=== PATIENT | female | born 1985 | race Hispanic/Latino ===

== ENCOUNTER 2018-03-20 04:38 | Emergency (ER) | payer MEDICAID, OTHER ==
[2018-03-20] MEDS ORDERED: SODIUM CHLORIDE 0.9% 1000ML 1,000 ML IV ONE (05:09)
== END 2018-03-20 06:18 | disposition home or self-care (01) ==
LOC: EDH 04:38
DX: R00.2 Palpitations (principal); E86.9 Volume depletion, unspecified; F41.9 Anxiety disorder, unspecified; Z98.890 Other specified postprocedural states; Z72.0 Tobacco use; Z88.0 Allergy status to penicillin; Z88.1 Allergy status to other antibiotic agents
CPT/HCPCS: 93005; 96360; 99283; J7030

== ENCOUNTER 2021-11-02 06:07 | Emergency (ER) | payer MEDICAID ==
[~2021-11-02] VITALS: Ht 160 cm; Wt 99.8 kg
[2021-11-02 08:18] LABS: BASOPHILS % (AUTO) 0.2 % (0.0-5.0); EOSINOPHILS % (AUTO) 0.1 % (0.0-8.0); HEMATOCRIT 36.4 % (36-48); LYMPHOCYTES % (AUTO) 4.2 % (21.0-51.0); MEAN CORPUSCULAR HGB CONC 32.7 g/dL (32.0-36.0); MEAN CORPUSCULAR VOLUME 79.6 fL (79-99); MONOCYTES % (AUTO) 6.7 % (3.0-13.0); NEUTROPHILS % (AUTO) 88.3 % (40.0-77.0); PLATELET COUNT (AUTO) 388 K/uL (130-400); RED BLOOD CELL COUNT(AUTO) 4.57 MIL/uL (4.00-5.50); RED CELL DISTRIBUTION WIDTH 15.9 % (11.0-15.5); WHITE BLOOD COUNT (AUTO) 15.5 K/uL (4.8-10.8)
[2021-11-02] MEDS ORDERED: CLINDAMYCIN IVPB 600MG/50ML 50 ML IV SCH (08:30)
[2021-11-02] MEDS ORDERED: 0.9%NACL 1000ML 1,000 ML IV ONE (08:30)
[2021-11-02] MEDS ORDERED: ONDANSETRON 4MG INJ IVP ONE (08:30)
[2021-11-02] MEDS ORDERED: MORPHINE 4 MG SYG IVP ONE (08:30)
[2021-11-02 08:48] LABS: CREATININE 0.7 mg/dL (0.5-1.5); POTASSIUM 3.7 mmol/L (3.5-5.1)
[2021-11-02 08:58] LABS: ALBUMIN 3.5 g/dL (3.5-5.0); TOTAL PROTEIN, SERUM 8.1 g/dL (6.0-8.3)
[2021-11-02] MEDS ORDERED: KETOROLAC 30MG VIAL (30MG/ML) IVP ONE (10:00)
[2021-11-02] MEDS ORDERED: IBUP-2077 PO (11:04)
[2021-11-02] MEDS ORDERED: CLIN-141 PO (11:04)
[2021-11-02 11:29] VITALS: BP 138/88
== END 2021-11-02 11:39 | disposition home or self-care (01) ==
LOC: EDH 06:07
DX: H66.93 Otitis media, unspecified, bilateral (principal); H60.513 Acute actinic otitis externa, bilateral; Z88.0 Allergy status to penicillin; Z88.1 Allergy status to other antibiotic agents; Z98.890 Other specified postprocedural states
CPT/HCPCS: 99284; 96365; 96375; 96366; 84484; 80053; 85025; 83605; 36415; J7030; J2405; J2270; J1885; J3490